=== PATIENT | female | born 1940 | race Caucasian/White ===

== ENCOUNTER 2021-12-25 14:42 | Outpatient (RCR) | payer MEDICARE | END 2022-01-12 | disposition home or self-care (01) | LOC: WSPT | DX: M54.16 Radiculopathy, lumbar region (principal) ==

== ENCOUNTER 2022-02-11 15:45 | Outpatient (RCR) | payer MEDICARE | END 2022-02-12 | disposition home or self-care (01) | LOC: WSPT | DX: M54.16 Radiculopathy, lumbar region (principal) ==

== ENCOUNTER 2022-03-03 12:45 | Outpatient (RCR) | payer MEDICARE | END 2022-03-14 | disposition home or self-care (01) | LOC: WSPT | DX: M54.16 Radiculopathy, lumbar region (principal) ==